=== PATIENT | female | born 2000 | race American Indian/Alaskan Native ===

== ENCOUNTER 2020-01-13 12:24 | Outpatient (CLI) | payer OTHER ==
[2020-01-13 14:00] VITALS: BP 106/60
[2020-01-13 14:14] LABS: Amorphous Crystals,Urine 1+; Bacteria,Urine 1+ /HPF (Negative); Bilirubin,Urine NEG (Negative); Blood,Urine NEG (Negative); Color,Urine Yellow (Yellow); Mucus,Urine FEW /HPF; Protein,Urine <15 mg/dL mg/dL (Negative); Urobilinogen,Urine < 2.0 mg/dL (<2.0)
== END 2020-01-13 15:27 | disposition home or self-care (01) ==
LOC: APU 12:24 → TRG 12:24 → APU 12:55 → TRG 15:27
PROVIDERS: ATTEND Obstetrics & Gynecology
DX: O36.8120 Decreased fetal movements, second trimester, not applicable or unspecified (principal); O26.852 Spotting complicating pregnancy, second trimester; Z3A.24 24 weeks gestation of pregnancy
CPT/HCPCS: 59025; 81001; 87591

== ENCOUNTER 2020-01-24 22:23 | Outpatient (CLI) | payer OTHER ==
[2020-01-24 23:35] VITALS: BP 123/74
== END 2020-01-24 23:44 | disposition home or self-care (01) ==
LOC: TRG 22:23 → APU 22:40 → TRG 23:44
PROVIDERS: ATTEND Obstetrics & Gynecology
DX: O36.8120 Decreased fetal movements, second trimester, not applicable or unspecified (principal); Z3A.25 25 weeks gestation of pregnancy
CPT/HCPCS: 59025

== ENCOUNTER 2020-02-14 12:33 | Outpatient (CLI) | payer OTHER ==
[2020-02-14 13:21] LABS: Bilirubin,Urine NEG (Negative); Blood,Urine NEG (Negative); Color,Urine Yellow (Yellow); Mucus,Urine FEW /HPF; Protein,Urine <15 mg/dL mg/dL (Negative); Urobilinogen,Urine < 2.0 mg/dL (<2.0)
[2020-02-14 13:43] VITALS: BP 105/65
[2020-02-14] MEDS: LACTATED RINGERS 1,000 ML IV SCH ×2 (13:45→14:53)
== END 2020-02-14 16:55 | disposition home or self-care (01) ==
LOC: TRG 12:33 → APU 12:34 → TRG 16:55
PROVIDERS: ATTEND Obstetrics & Gynecology
DX: O26.893 Other specified pregnancy related conditions, third trimester (principal); M79.605 Pain in left leg; Z3A.28 28 weeks gestation of pregnancy
CPT/HCPCS: 59025; 81001; 93970; 96360; 96361; J7120

== ENCOUNTER 2020-05-07 07:25 | Inpatient (IN) | payer OTHER ==
[2020-05-07] MEDS ORDERED: TERBUTALINE 1 MG/1 ML INJ SUB-Q PRN (07:54)
[2020-05-07] MEDS ORDERED: LIDOCAINE (2%) 20 MG/1 ML VIAL 20 ML MDV INFILTRATI NR (07:54)
[2020-05-07] MEDS ORDERED: AMPICILLIN/NS 2 GM/100 ML 2 GM/100 ML BAG IV ONE (07:54)
[2020-05-07] MEDS ORDERED: ePHEDrine SULFATE 50 MG/1 ML INJ IV PRN ×2 (08:00→11:40)
[2020-05-07] MEDS ORDERED: ONDANSETRON 4 MG/2 ML INJ IV PRN (08:00)
[2020-05-07] MEDS ORDERED: fentaNYL 100 MCG/2 ML INJ IV PRN (08:00)
[2020-05-07] MEDS ORDERED: OXYTOCIN DRIP 30 UNITS/500 ML BAG IV SCH (08:00)
--- NOTE | 2020-05-07 08:02 | History and Physical Report ---
History of Present Illness Date of examination: 05/07/20 (active labor;GBS+; 40w6d) Chief complaint: worsening contractions this AM History of present illness: EDC Calculations LMP: 05/01/2020 EDC Confirmation: 05/01/2020 Gestational Age: 10 weeks Past History : 1 Term Births: 0 Premature Births: 0 Living Children: 0 Para: 0 Mult. Births: 0 Prev : 0 Aborta: 0 Elect. Ab: 0 Spont. Ab: 0 Ectopics: 0 Past Medical History: Reviewed history and no changes required: Negative Past Medical History Past Surgical History: Reviewed history and no changes required: negative Past Medical History Anesthesia Complications: negative Anemia: negative Autoimmune Disorder: negative Bleeding Disorder: negative Blood Transfusions: negative Breast Disease: negative Diabetes: negative Heart Disease: negative Hypertension: negative Hepatitis/Liver Disease: negative Kidney Disease/UTI: negative Neurologic/Epilepsy/Migraines: negative Phlebitis/Varicosities: negative Psychiatric: negative Pulmonary Disease/Asthma: negative Thyroid Disease: negative Hospitalizations: negative Surgery (Non-computer network and systems engineer): negative Abnormal PAP: negative KIRSTEN Exposure: negative Infertility: negative Uterine Anomaly: negative Uterine Surgery (not C/S): negative Other Gynecologic Problems: negative Infection History Hx of STD: none HIV Risk Eval: low risk Hepatitis B Risk Eval: low risk Personal hx. of genital herpes: no Partner hx. of genital herpes: no Rash, Viral, or Febrile illness since last LMP? no Varicella/Chicken Pox Status: Unknown TB Risk: no Infection History Comments: Has never had chicken pox or vaccine. Genetic History Congenital Heart Defect: Mom: no Dad: no Miya Disease: Mom: no Dad: no Thalassemia Mom: no Dad: no Neural Tube Defect Mom: no Dad: no Down's Syndrome Mom: no Dad: no Galo-Sachs Mom: no Dad: no Sickle Cell Disease/Trait Mom: no Dad: no Hemophilia Mom: no Dad: no Muscular Dystrophy Mom: no Dad: no Cystic Fibrosis Mom: no Dad: no [place] Chorea Mom: no Dad: no Mental Retardation Mom: no Dad: no Fragile X Mom: no Dad: no Other Genetic/Chromosomal Disorder Mom: no Dad: no Child w/other defect Mom: no Dad: no Enviromental Exposures Xray Exposure: no Medication, drug, or alcohol use since LMP: no Chemical/Other Exposure: no Exposure to Cat Liter: no Hx of Parvovirus (Fifth Disease): no Occupational Exposure to Children: none Active Medications (reviewed today): None Current Allergies (reviewed today): No known allergies Past History - Obstetrical History Expected Date of Delivery: 05/01/20 Actual Gestation: 40 Week(s) 6 Day(s) : 1 Para: 0 Hx # Term Pregnancies: 0 Number of Pregnancies: 0 Spontaneous Abortions: 0 Induced : 0 Number of Living Children: 0 Medications and Allergies Allergies Allergy/AdvReac Type Severity Reaction Status Date / Time No Known Allergies Allergy Verified 01/13/20 12:55 Review of Systems All systems: negative Allergic/Immunologic: other (nonimmune rubella and varicella) - Vital Signs Vital signs: Vital Signs Pulse Pulse Ox 84 100 05/07/20 07:32 05/07/20 07:32 Temp Pulse Resp BP Pulse Ox 82 18 142/87 100 05/07/20 07:52 05/07/20 07:33 05/07/20 07:33 05/07/20 07:52 - Physical Exam Breasts: Positive: deferred Cardiovascular: Regular rate, Normal S1, Normal S2 Lungs: Positive: Normal air movement Abdomen: Positive: normal appearance, soft, normal bowel sounds. Negative: distention, tenderness Genitourinary (Female): Positive: normal external genitalia, normal perenium Vulva: both: normal Vagina: Positive: normal moisture. Negative: discharge Cervix: Negative: lesion, discharge Uterus: Positive: normal size, normal contour Adnexa: both: normal Anus/Rectum: Positive: normal perianal skin, heme negative. Negative: rectal mass, hemorrhoids Extremities: Positive: normal Deep Tendon Reflex Grade: Normal +2 - Obstetrical FHR: category 1 Uterine Contraction Monitor Mode: External Cervical Dilatation: 2 (cervix soft per technical services representative) Cervical Effacement Percentage: 60 station: -1 Uterine Contraction Frequency (min): q2min Uterine Contraction Pattern: Regular Uterine Tone Measurement Phase: Resting Uterine Contraction Intensity: Moderate Results All other labs normal. HBsAg Screen Negative Negative *1 RPR Non Reactive Non Reactive *2 Rubella Antibodies, IgG [L] <0.90 index Immune >0.99 *3 Non-immune <0.90 Equivocal 0.90 - 0.99 Immune >0.99 ABO Grouping B *4 Rh Factor Positive *5 Please note: Prior records for this patient's ABO / Rh type are not available for additional verification. Antibody Screen Negative Negative *6 WBC 8.0 x10E3/uL 3.4-10.8 *7 RBC 3.85 x10E6/uL 3.77-5.28 *8 Hemoglobin 11.6 g/dL 11.1-15.9 *9 Hematocrit 34.2 % 34.0-46.6 *10 MCV 89 fL 79-97 *11 MCH 30.1 pg 26.6-33.0 *12 MCHC 33.9 g/dL 31.5-35.7 *13 RDW 14.0 % 11.7-15.4 *14 Platelets 260 x10E3/uL 150-450 *15 Neutrophils 70 % Not Estab. *16 Lymphs 22 % Not Estab. *17 Monocytes 7 % Not Estab. *18 Eos 1 % Not Estab. *19 Basos 0 % Not Estab. *20 ! Immature Cells <No Reported Value> *21 Neutrophils (Absolute) 5.6 x10E3/uL 1.4-7.0 *22 Lymphs (Absolute) 1.7 x10E3/uL 0.7-3.1 *23 Monocytes(Absolute) 0.6 x10E3/uL 0.1-0.9 *24 Eos (Absolute) 0.1 x10E3/uL 0.0-0.4 *25 Baso (Absolute) 0.0 x10E3/uL 0.0-0.2 *26 ! Immature Granulocytes 0 % Not Estab. *27 ! Immature Grans (Abs) 0.0 x10E3/uL 0.0-0.1 *28 ! NRBC <No Reported Value> *29 Hematology Comments: <No Reported Value> *30 Tests: (2) HB Solu + Rflx [facility] ([id number]) Hemoglobin (Hgb) Solubility Negative Negative *31 Tests: (3) HIV Ag/Ab with Reflex ([id number]) HIV Screen 4th Generation wRfx Non Reactive Non Reactive *32 Tests: (4) Varicella-Zoster V Ab, IgG ([id number]) ! Varicella Zoster IgG [L] <135 index Immune >165 *33 Negative <135 Equivocal 135 - 165 Positive >165 A positive result generally indicates exposure to the pathogen or administration of specific immunoglobulins, but it is not indication of active infection or stage of disease. Tests: (5) HCV Ab w/Rflx to Verification ([id number]) ! HCV Ab <0.1 s/co ratio 0.0-0.9 *34 Tests: (6) Comment: ([id number]) ! Comment: SPRCS *35 Non reactive HCV antibody screen is consistent with no HCV infection, unless recent infection is suspected or other evidence exists to indicate HCV infection. Tests: (7) Urine Culture, Routine ([id number]) Urine Culture, Routine [A] Final report *36 Tests: (8) Result ([id number]) ! Result 1 [A] BETAGB *37 Beta hemolytic Streptococcus, group B Penicillin and ampicillin are drugs of choice for treatment of beta-hemolytic streptococcal infections. Susceptibility testing of penicillins and other beta-lactam agents approved by the FDA for treatment of beta-hemolytic streptococcal infections need not be performed routinely because nonsusceptible isolates are extremely rare in any beta-hemolytic streptococcus and have not been reported for Streptococcus pyogenes (group A). (CLSI) 10,000-25,000 colony forming units per mL ! Result 2 MUG *38 Mixed urogenital kay 10,000-25,000 colony forming units per mL Assessment and Plan 19yo @ 40w6d in active labor. CTX that started this AM. Epidural PRN. GBS+ Will treat in labor. All orders in EMR. - Patient Problems (1) Maternal varicella, non-immune Onset Date: ~05/07/20 Current Visit: Yes Status: Acute Plan to address problem: Will offer vaccine for chicken pox (2) Rubella non-immune status, antepartum Onset Date: ~05/07/20 Current Visit: Yes Status: Acute Plan to address problem: Will offer MMR for rubella nonimmune (3) Group B Streptococcus carrier state affecting Onset Date: ~05/07/20 Current Visit: Yes Status: Acute Plan to address problem: Will treat per protocol with Ampicillin in labor. Orders in EMR
[2020-05-07] MEDS: LACTATED RINGERS 1,000 ML IV SCH ×4 (08:25→19:10)
[2020-05-07 08:59] LABS: Hemoglobin 11.8 gm/dl (10.1-14.3); Mean Corpuscular HGB Conc 34 % (30-34); Mean Corpuscular Volume 90 fl (79-97); Platelet Count 270 K/mm3 (140-440); Red Blood Count 3.88 M/mm3 (3.65-5.03); Red Cell Distribution Width 14.4 % (13.2-15.2)
[2020-05-07] MEDS ORDERED: DEXMEDETOMIDINE 200 MCG/2 ML VIAL IV ONE (10:10)
--- NOTE | 2020-05-07 11:25 | Anesthesia Consultation ---
Anesthesia Consult and Med Hx Date of service: 05/07/20 - Airway Anesthetic Teeth Evaluation: Good ROM Head & Neck: Adequate Mental/Hyoid Distance: Adequate Mallampati Class: Class II Intubation Access Assessment: Probably Good - Pulmonary Exam CTA: Yes - Cardiac Exam Cardiac Exam: RRR - Pre-Operative Health Status ASA Pre-Surgery Classification: ASA2 Proposed Anesthetic Plan: Epidural - Pulmonary Hx Smoking: No Hx Asthma: No Hx Respiratory Symptoms: No SOB: No COPD: No Home Oxygen Therapy: No Hx Pneumonia: No Hx Sleep Apnea: No - Cardiovascular System Hx Hypertension: No Hx Coronary Artery Disease: No Hx Heart Attack/AMI: No Hx Angina: No Hx Percutaneous Transluminal Coronary Angioplasty (PTCA): No Hx Cardia Arrhythmia: No Hx Pacemaker: No Hx Internal Defibrillator: No Hx Valvular Heart Disease: No Hx Heart Murmur: No Hx Peripheral Vascular Disease: No - Central Nervous System Hx Neuromuscular Disorder: No Hx Seizures: No CVA: No Hx Back Pain: Yes (anxiety) Hx Psychiatric Problems: No - Gastrointestinal Hx Ulcer: No Hx Gastroesophageal Reflux Disease: Yes - Endocrine Hx Renal Disease: No Hx End Stage Renal Disease: No Hx Cirrhosis: No Hx Liver Disease: No Hx Insulin Dependent Diabetes: No Hx Non-Insulin Dependent Diabetes: No Hx Thyroid Disease: No Hx Hypothyroidism: No Hx Hyperthyroidism: No - Hematic Hx Anemia: No Hx Sickle Cell Disease: No - Other Systems Hx Alcohol Use: No Hx Substance Use: No Hx Cancer: No Hx Obesity: No
--- NOTE | 2020-05-07 11:37 | Progress Note ---
Labor Epidural - Labor Epidural Start Time: 10:10 Stop Time: 10:42 Performed by:: DAO ACHARYA Procedure: Patient is requesting combined spinal epidural for labor and pain. H&P, labs were reviewed. All questions and concerns were answered. Informed consent was obtained. Timeout performed. Patient in sitting position on side of bed. Sterile prep and drape was performed. 5mL 1% lidocaine skin wheal at L [3]-L [4]. 18-gauge Tuohy epidural needle advanced to [id number] using air technique , [6cm]. 27-gauge spinal needle advanced, Positive Paresthesia, Tuohy needle repositioned. free-flowing CSF with 2nd attempt with no Parethesia. Spinal dose of [Precedex 10 mcg]. Epidural catheter advanced to [11] cm. [negative] Aspiration, [negative] test dose. Sterile dressing applied. Patient extremely anxious during procedure. Needed to stop multiple times for verbel reassurance.
[2020-05-07] MEDS ORDERED: NALOXONE 2 MG/2 ML INJ IV PRN (11:40)
[2020-05-07 11:48] LABS: Bilirubin,Urine NEG (Negative); Blood,Urine SM (Negative); Color,Urine Straw (Yellow); Hyaline Casts,Urine 1 /LPF; Protein,Urine <15 mg/dL mg/dL (Negative); Urobilinogen,Urine < 2.0 mg/dL (<2.0)
[2020-05-07 11:57] LABS: Amphetamine Screen,Urine Negative; Benzodiazepines Screen,Urine Negative; Cannabinoid Screen,Urine Negative; Cocaine Screen,Urine Negative; Methadone Screen,Urine Negative; Opiate Screen,Urine Negative
[2020-05-07] MEDS ORDERED: fentaNYL-BUPIV 2 MCG/ML-0.125% 200 MCG/100 ML BAG EPIDURAL SCH (12:00)
[2020-05-07] MEDS: AMPICILLIN/NS 1 GM/50 ML 1 GM/50 ML BAG IV SCH ×2 (12:08→16:25)
--- NOTE | 2020-05-07 12:31 | Progress Note ---
Assessment and Plan A: Epidural in, pt sleeping. Regular contractions on Pitocin titration. SVE per RN /-1. Cat 1 tracing with accels. VSS. Intact membranes P: Continue Pitocin titration as tolerated. GBS treatment per protocol. Expect Vaginal delivery. Dr Morton aware. - Patient Problems (1) Maternal varicella, non-immune Onset Date: ~05/07/20 Current Visit: Yes Status: Acute (2) Rubella non-immune status, antepartum Onset Date: ~05/07/20 Current Visit: Yes Status: Acute (3) Group B Streptococcus carrier state affecting Onset Date: ~05/07/20 Current Visit: Yes Status: Acute Subjective - Subjective Date of service: 05/07/20 (Comfortable with epidural) Principal diagnosis: Term IUP in labor Interval history: EDC Calculations LMP: 05/01/2020 EDC Confirmation: 05/01/2020 Gestational Age: 10 weeks Past History : 1 Term Births: 0 Premature Births: 0 Living Children: 0 Para: 0 Mult. Births: 0 Prev : 0 Aborta: 0 Elect. Ab: 0 Spont. Ab: 0 Ectopics: 0 Past Medical History: Reviewed history and no changes required: Negative Past Medical History Past Surgical History: Reviewed history and no changes required: negative Past Medical History Anesthesia Complications: negative Anemia: negative Autoimmune Disorder: negative Bleeding Disorder: negative Blood Transfusions: negative Breast Disease: negative Diabetes: negative Heart Disease: negative Hypertension: negative Hepatitis/Liver Disease: negative Kidney Disease/UTI: negative Neurologic/Epilepsy/Migraines: negative Phlebitis/Varicosities: negative Psychiatric: negative Pulmonary Disease/Asthma: negative Thyroid Disease: negative Hospitalizations: negative Surgery (Non-railroad police): negative Abnormal PAP: negative KIRSTEN Exposure: negative Infertility: negative Uterine Anomaly: negative Uterine Surgery (not C/S): negative Other Gynecologic Problems: negative Infection History Hx of STD: none HIV Risk Eval: low risk Hepatitis B Risk Eval: low risk Personal hx. of genital herpes: no Partner hx. of genital herpes: no Rash, Viral, or Febrile illness since last LMP? no Varicella/Chicken Pox Status: Unknown TB Risk: no Infection History Comments: Has never had chicken pox or vaccine. Genetic History Congenital Heart Defect: Mom: no Dad: no Miya Disease: Mom: no Dad: no Thalassemia Mom: no Dad: no Neural Tube Defect Mom: no Dad: no Down's Syndrome Mom: no Dad: no Galo-Sachs Mom: no Dad: no Sickle Cell Disease/Trait Mom: no Dad: no Hemophilia Mom: no Dad: no Muscular Dystrophy Mom: no Dad: no Cystic Fibrosis Mom: no Dad: no [place] Chorea Mom: no Dad: no Mental Retardation Mom: no Dad: no Fragile X Mom: no Dad: no Other Genetic/Chromosomal Disorder Mom: no Dad: no Child w/other defect Mom: no Dad: no Enviromental Exposures Xray Exposure: no Medication, drug, or alcohol use since LMP: no Chemical/Other Exposure: no Exposure to Cat Liter: no Hx of Parvovirus (Fifth Disease): no Occupational Exposure to Children: none Active Medications (reviewed today): None Current Allergies (reviewed today): No known allergies Patient reports: movement normal, contractions Objective - Vital Signs Vital Signs: Vital Signs - 12hr 05/07/20 05/07/20 05/07/20 07:32 07:33 07:37 Temperature Pulse Rate 84 81 87 Respiratory 18 Rate Blood Pressure 142/87 Blood Pressure 142/87 [Left] O2 Sat by Pulse 100 100 100 Oximetry 05/07/20 05/07/20 05/07/20 07:42 07:47 07:52 Temperature Pulse Rate 86 84 82 Respiratory Rate Blood Pressure Blood Pressure [Left] O2 Sat by Pulse 100 100 100 Oximetry 05/07/20 05/07/20 05/07/20 07:54 09:29 09:30 Temperature 97.7 F Pulse Rate 68 68 Respiratory 20 Rate Blood Pressure 133/83 Blood Pressure 133/83 [Left] O2 Sat by Pulse 88 Oximetry 05/07/20 05/07/20 05/07/20 10:04 10:09 10:14 Temperature Pulse Rate 79 69 59 L Respiratory Rate Blood Pressure Blood Pressure [Left] O2 Sat by Pulse 100 99 100 Oximetry 05/07/20 05/07/20 05/07/20 10:19 10:23 10:29 Temperature Pulse Rate 67 105 H 76 Respiratory Rate Blood Pressure Blood Pressure [Left] O2 Sat by Pulse 100 100 100 Oximetry 05/07/20 05/07/20 05/07/20 10:34 10:39 10:44 Temperature Pulse Rate 98 H 80 66 Respiratory Rate Blood Pressure Blood Pressure [Left] O2 Sat by Pulse 100 100 100 Oximetry 05/07/20 05/07/20 05/07/20 10:45 10:49 10:51 Temperature Pulse Rate 84 86 78 Respiratory Rate Blood Pressure 108/58 97/52 Blood Pressure [Left] O2 Sat by Pulse 100 Oximetry 05/07/20 05/07/20 05/07/20 10:53 10:57 10:59 Temperature Pulse Rate 74 80 76 Respiratory Rate Blood Pressure 82/47 Blood Pressure [Left] O2 Sat by Pulse 100 100 Oximetry 05/07/20 05/07/20 05/07/20 11:01 11:04 11:06 Temperature Pulse Rate 81 64 71 Respiratory Rate Blood Pressure 87/49 108/65 Blood Pressure [Left] O2 Sat by Pulse 100 Oximetry 05/07/20 05/07/20 05/07/20 11:09 11:10 11:14 Temperature Pulse Rate 66 78 62 Respiratory Rate Blood Pressure 107/64 Blood Pressure [Left] O2 Sat by Pulse 100 99 Oximetry 05/07/20 05/07/20 05/07/20 11:15 11:19 11:20 Temperature Pulse Rate 88 90 91 H Respiratory Rate Blood Pressure 90/53 92/50 Blood Pressure [Left] O2 Sat by Pulse 99 Oximetry 05/07/20 05/07/20 05/07/20 11:24 11:25 11:29 Temperature Pulse Rate 79 72 77 Respiratory Rate Blood Pressure 103/60 Blood Pressure [Left] O2 Sat by Pulse 99 100 Oximetry 05/07/20 05/07/20 05/07/20 11:30 11:34 11:35 Temperature Pulse Rate 91 H 68 95 H Respiratory Rate Blood Pressure 84/50 103/55 Blood Pressure [Left] O2 Sat by Pulse 100 Oximetry 05/07/20 05/07/20 05/07/20 11:38 11:40 11:44 Temperature Pulse Rate 80 92 H 68 Respiratory Rate Blood Pressure 94/56 Blood Pressure [Left] O2 Sat by Pulse 99 100 Oximetry 05/07/20 05/07/20 05/07/20 11:47 11:48 11:49 Temperature Pulse Rate 90 74 56 L Respiratory Rate Blood Pressure 77/42 81/50 Blood Pressure [Left] O2 Sat by Pulse 99 Oximetry 05/07/20 05/07/20 05/07/20 11:50 11:54 11:55 Temperature Pulse Rate 68 54 L 62 Respiratory Rate Blood Pressure 88/55 110/63 Blood Pressure [Left] O2 Sat by Pulse 100 Oximetry 05/07/20 05/07/20 05/07/20 11:59 12:01 12:04 Temperature Pulse Rate 83 64 83 Respiratory Rate Blood Pressure 107/62 Blood Pressure [Left] O2 Sat by Pulse 100 100 Oximetry 05/07/20 05/07/20 05/07/20 12:06 12:09 12:10 Temperature Pulse Rate 70 59 L 57 L Respiratory Rate Blood Pressure 103/58 109/69 Blood Pressure [Left] O2 Sat by Pulse 100 Oximetry 05/07/20 05/07/20 05/07/20 12:14 12:17 12:19 Temperature Pulse Rate 59 L 60 64 Respiratory Rate Blood Pressure 108/69 Blood Pressure [Left] O2 Sat by Pulse 100 99 Oximetry 05/07/20 05/07/20 12:20 12:24 Temperature Pulse Rate 65 70 Respiratory Rate Blood Pressure 106/61 Blood Pressure [Left] O2 Sat by Pulse 100 Oximetry - Exam Breasts: normal Cardiovascular: Regular rate Lungs: Normal air movement Abdomen: Present: normal appearance, soft, normal bowel sounds. Absent: distention, tenderness Uterus: Present: normal FHR: auscultation normal, category 1 Uterine Contraction Monitor Mode: External Cervical Dilatation: 3 Cervical Effacement Percentage: 70 station: -1 Uterine Contraction Pattern: Regular Uterine Tone Measurement Phase: Resting Uterine Contraction Intensity: Moderate Extremities: normal Deep Tendon Reflex Grade: Normal +2 - Labs Labs: Laboratory Results - last 24 hr 05/07/20 05/07/20 05/07/20 08:30 08:30 08:30 WBC 6.1 RBC 3.88 Hgb 11.8 Hct 35.0 MCV 90 MCH 30 MCHC 34 RDW 14.4 Plt Count 270 Urine Color Urine Turbidity Urine pH Ur Specific [place] Urine Protein Urine Glucose (UA) Urine Ketones Urine Blood Urine Nitrite Urine Bilirubin Urine Urobilinogen Ur Leukocyte Esterase Urine WBC (Auto) Urine RBC (Auto) U Epithel Cells (Auto) Hyaline Casts Urine Opiates Screen Urine Methadone Screen Ur Barbiturates Screen Ur Phencyclidine Scrn Ur Amphetamines Screen U Benzodiazepines Scrn Urine Cocaine Screen U Marijuana (THC) Screen Drugs of Abuse Note Syphilis IgG Antibody Nonreactive Blood Type B POSITIVE Antibody Screen Negative 05/07/20 05/07/20 09:45 09:45 WBC RBC Hgb Hct MCV MCH MCHC RDW Plt Count Urine Color Straw Urine Turbidity Clear Urine pH 7.0 Ur Specific [place] 1.011 Urine Protein <15 mg/dl Urine Glucose (UA) Neg Urine Ketones Neg Urine Blood Sm Urine Nitrite Neg Urine Bilirubin Neg Urine Urobilinogen < 2.0 Ur Leukocyte Esterase Neg Urine WBC (Auto) 2.0 Urine RBC (Auto) 2.0 U Epithel Cells (Auto) 1.0 Hyaline Casts 1 Urine Opiates Screen Negative Urine Methadone Screen Negative Ur Barbiturates Screen Negative Ur Phencyclidine Scrn Negative Ur Amphetamines Screen Negative U Benzodiazepines Scrn Negative Urine Cocaine Screen Negative U Marijuana (THC) Screen Negative Drugs of Abuse Note Disclamer Syphilis IgG Antibody Blood Type Antibody Screen
--- NOTE | 2020-05-07 16:14 | Progress Note ---
Assessment and Plan A: SVE 9/100/-2, Intact BOW. Cat I tracing with accels. Regular contractions. Comfortable with epidural. P: Continue pitocin at current titration. High fowlers position. Plan for - Patient Problems (1) Maternal varicella, non-immune Onset Date: ~05/07/20 Current Visit: Yes Status: Acute (2) Rubella non-immune status, antepartum Onset Date: ~05/07/20 Current Visit: Yes Status: Acute (3) Group B Streptococcus carrier state affecting Onset Date: ~05/07/20 Current Visit: Yes Status: Acute Subjective - Subjective Date of service: 05/07/20 (Comfortable with epidural) Principal diagnosis: Term IUP in labor Interval history: EDC Calculations LMP: 05/01/2020 EDC Confirmation: 05/01/2020 Gestational Age: 10 weeks Past History : 1 Term Births: 0 Premature Births: 0 Living Children: 0 Para: 0 Mult. Births: 0 Prev : 0 Aborta: 0 Elect. Ab: 0 Spont. Ab: 0 Ectopics: 0 Past Medical History: Reviewed history and no changes required: Negative Past Medical History Past Surgical History: Reviewed history and no changes required: negative Past Medical History Anesthesia Complications: negative Anemia: negative Autoimmune Disorder: negative Bleeding Disorder: negative Blood Transfusions: negative Breast Disease: negative Diabetes: negative Heart Disease: negative Hypertension: negative Hepatitis/Liver Disease: negative Kidney Disease/UTI: negative Neurologic/Epilepsy/Migraines: negative Phlebitis/Varicosities: negative Psychiatric: negative Pulmonary Disease/Asthma: negative Thyroid Disease: negative Hospitalizations: negative Surgery (Non-senior care provider): negative Abnormal PAP: negative KIRSTEN Exposure: negative Infertility: negative Uterine Anomaly: negative Uterine Surgery (not C/S): negative Other Gynecologic Problems: negative Infection History Hx of STD: none HIV Risk Eval: low risk Hepatitis B Risk Eval: low risk Personal hx. of genital herpes: no Partner hx. of genital herpes: no Rash, Viral, or Febrile illness since last LMP? no Varicella/Chicken Pox Status: Unknown TB Risk: no Infection History Comments: Has never had chicken pox or vaccine. Genetic History Congenital Heart Defect: Mom: no Dad: no Miya Disease: Mom: no Dad: no Thalassemia Mom: no Dad: no Neural Tube Defect Mom: no Dad: no Down's Syndrome Mom: no Dad: no Galo-Sachs Mom: no Dad: no Sickle Cell Disease/Trait Mom: no Dad: no Hemophilia Mom: no Dad: no Muscular Dystrophy Mom: no Dad: no Cystic Fibrosis Mom: no Dad: no [place] Chorea Mom: no Dad: no Mental Retardation Mom: no Dad: no Fragile X Mom: no Dad: no Other Genetic/Chromosomal Disorder Mom: no Dad: no Child w/other defect Mom: no Dad: no Enviromental Exposures Xray Exposure: no Medication, drug, or alcohol use since LMP: no Chemical/Other Exposure: no Exposure to Cat Liter: no Hx of Parvovirus (Fifth Disease): no Occupational Exposure to Children: none Active Medications (reviewed today): None Current Allergies (reviewed today): No known allergies Patient reports: movement normal, contractions Objective - Vital Signs Vital Signs: Vital Signs - 12hr 05/07/20 05/07/20 05/07/20 07:32 07:33 07:37 Temperature Pulse Rate 84 81 87 Respiratory 18 Rate Blood Pressure 142/87 Blood Pressure 142/87 [Left] O2 Sat by Pulse 100 100 100 Oximetry 05/07/20 05/07/20 05/07/20 07:42 07:47 07:52 Temperature Pulse Rate 86 84 82 Respiratory Rate Blood Pressure Blood Pressure [Left] O2 Sat by Pulse 100 100 100 Oximetry 05/07/20 05/07/20 05/07/20 07:54 09:29 09:30 Temperature 97.7 F Pulse Rate 68 68 Respiratory 20 Rate Blood Pressure 133/83 Blood Pressure 133/83 [Left] O2 Sat by Pulse 88 Oximetry 05/07/20 05/07/20 05/07/20 10:04 10:09 10:14 Temperature Pulse Rate 79 69 59 L Respiratory Rate Blood Pressure Blood Pressure [Left] O2 Sat by Pulse 100 99 100 Oximetry 05/07/20 05/07/20 05/07/20 10:19 10:23 10:29 Temperature Pulse Rate 67 105 H 76 Respiratory Rate Blood Pressure Blood Pressure [Left] O2 Sat by Pulse 100 100 100 Oximetry 05/07/20 05/07/20 05/07/20 10:34 10:39 10:44 Temperature Pulse Rate 98 H 80 66 Respiratory Rate Blood Pressure Blood Pressure [Left] O2 Sat by Pulse 100 100 100 Oximetry 05/07/20 05/07/20 05/07/20 10:45 10:49 10:51 Temperature Pulse Rate 84 86 78 Respiratory Rate Blood Pressure 108/58 97/52 Blood Pressure [Left] O2 Sat by Pulse 100 Oximetry 05/07/20 05/07/20 05/07/20 10:53 10:57 10:59 Temperature Pulse Rate 74 80 76 Respiratory Rate Blood Pressure 82/47 Blood Pressure [Left] O2 Sat by Pulse 100 100 Oximetry 05/07/20 05/07/20 05/07/20 11:01 11:04 11:06 Temperature Pulse Rate 81 64 71 Respiratory Rate Blood Pressure 87/49 108/65 Blood Pressure [Left] O2 Sat by Pulse 100 Oximetry 05/07/20 05/07/20 05/07/20 11:09 11:10 11:14 Temperature Pulse Rate 66 78 62 Respiratory Rate Blood Pressure 107/64 Blood Pressure [Left] O2 Sat by Pulse 100 99 Oximetry 05/07/20 05/07/20 05/07/20 11:15 11:19 11:20 Temperature Pulse Rate 88 90 91 H Respiratory Rate Blood Pressure 90/53 92/50 Blood Pressure [Left] O2 Sat by Pulse 99 Oximetry 05/07/20 05/07/20 05/07/20 11:24 11:25 11:29 Temperature Pulse Rate 79 72 77 Respiratory Rate Blood Pressure 103/60 Blood Pressure [Left] O2 Sat by Pulse 99 100 Oximetry 05/07/20 05/07/20 05/07/20 11:30 11:34 11:35 Temperature Pulse Rate 91 H 68 95 H Respiratory Rate Blood Pressure 84/50 103/55 Blood Pressure [Left] O2 Sat by Pulse 100 Oximetry 05/07/20 05/07/20 05/07/20 11:38 11:40 11:44 Temperature Pulse Rate 80 92 H 68 Respiratory Rate Blood Pressure 94/56 Blood Pressure [Left] O2 Sat by Pulse 99 100 Oximetry 05/07/20 05/07/20 05/07/20 11:47 11:48 11:49 Temperature Pulse Rate 90 74 56 L Respiratory Rate Blood Pressure 77/42 81/50 Blood Pressure [Left] O2 Sat by Pulse 99 Oximetry 05/07/20 05/07/20 05/07/20 11:50 11:54 11:55 Temperature Pulse Rate 68 54 L 62 Respiratory Rate Blood Pressure 88/55 110/63 Blood Pressure [Left] O2 Sat by Pulse 100 Oximetry 05/07/20 05/07/20 05/07/20 11:59 12:01 12:04 Temperature Pulse Rate 83 64 83 Respiratory Rate Blood Pressure 107/62 Blood Pressure [Left] O2 Sat by Pulse 100 100 Oximetry 05/07/20 05/07/20 05/07/20 12:06 12:09 12:10 Temperature Pulse Rate 70 59 L 57 L Respiratory Rate Blood Pressure 103/58 109/69 Blood Pressure [Left] O2 Sat by Pulse 100 Oximetry 05/07/20 05/07/20 05/07/20 12:14 12:17 12:19 Temperature Pulse Rate 59 L 60 64 Respiratory Rate Blood Pressure 108/69 Blood Pressure [Left] O2 Sat by Pulse 100 99 Oximetry 05/07/20 05/07/20 05/07/20 12:20 12:24 12:27 Temperature Pulse Rate 65 70 64 Respiratory Rate Blood Pressure 106/61 107/63 Blood Pressure [Left] O2 Sat by Pulse 100 Oximetry 05/07/20 05/07/20 05/07/20 12:29 12:31 12:34 Temperature Pulse Rate 85 75 59 L Respiratory Rate Blood Pressure 101/57 Blood Pressure [Left] O2 Sat by Pulse 100 100 Oximetry 05/07/20 05/07/20 05/07/20 12:36 12:39 12:40 Temperature Pulse Rate 74 88 61 Respiratory Rate Blood Pressure 101/57 107/64 Blood Pressure [Left] O2 Sat by Pulse 100 Oximetry 05/07/20 05/07/20 05/07/20 12:44 12:46 12:49 Temperature Pulse Rate 82 72 84 Respiratory Rate Blood Pressure 103/59 Blood Pressure [Left] O2 Sat by Pulse 100 100 Oximetry 05/07/20 05/07/20 05/07/20 12:50 12:54 12:56 Temperature Pulse Rate 92 H 91 H 77 Respiratory Rate Blood Pressure 96/56 111/67 Blood Pressure [Left] O2 Sat by Pulse 100 Oximetry 05/07/20 05/07/20 05/07/20 12:59 13:00 13:04 Temperature Pulse Rate 70 96 H 67 Respiratory Rate Blood Pressure 99/54 Blood Pressure [Left] O2 Sat by Pulse 100 100 Oximetry 05/07/20 05/07/20 05/07/20 13:06 13:09 13:10 Temperature Pulse Rate 83 61 72 Respiratory Rate Blood Pressure 109/64 113/64 Blood Pressure [Left] O2 Sat by Pulse 100 Oximetry 05/07/20 05/07/20 05/07/20 13:14 13:15 13:19 Temperature Pulse Rate 59 L 70 90 Respiratory Rate Blood Pressure 111/72 Blood Pressure [Left] O2 Sat by Pulse 100 100 Oximetry 05/07/20 05/07/20 05/07/20 13:20 13:24 13:25 Temperature 97.3 F L Pulse Rate 89 60 Respiratory 20 Rate Blood Pressure 99/55 Blood Pressure [Left] O2 Sat by Pulse 100 100 Oximetry 05/07/20 05/07/20 05/07/20 13:27 13:29 13:30 Temperature Pulse Rate 59 L 55 L 64 Respiratory Rate Blood Pressure 112/69 103/63 Blood Pressure [Left] O2 Sat by Pulse 100 Oximetry 05/07/20 05/07/20 05/07/20 13:34 13:39 13:43 Temperature Pulse Rate 59 L 56 L 81 Respiratory Rate Blood Pressure Blood Pressure [Left] O2 Sat by Pulse 100 100 100 Oximetry 05/07/20 05/07/20 05/07/20 13:47 13:49 13:54 Temperature Pulse Rate 103 H 82 67 Respiratory Rate Blood Pressure 120/66 Blood Pressure [Left] O2 Sat by Pulse 100 100 Oximetry 05/07/20 05/07/20 05/07/20 13:59 14:00 14:04 Temperature Pulse Rate 61 69 61 Respiratory Rate Blood Pressure 100/63 Blood Pressure [Left] O2 Sat by Pulse 100 100 Oximetry 05/07/20 05/07/20 05/07/20 14:08 14:14 14:17 Temperature Pulse Rate 89 78 54 L Respiratory Rate Blood Pressure 122/74 Blood Pressure [Left] O2 Sat by Pulse 100 100 Oximetry 05/07/20 05/07/20 05/07/20 14:19 14:24 14:29 Temperature Pulse Rate 76 62 80 Respiratory Rate Blood Pressure Blood Pressure [Left] O2 Sat by Pulse 100 100 100 Oximetry 05/07/20 05/07/20 05/07/20 14:34 14:39 14:44 Temperature Pulse Rate 76 59 L 83 Respiratory Rate Blood Pressure Blood Pressure [Left] O2 Sat by Pulse 100 100 100 Oximetry 05/07/20 05/07/20 05/07/20 14:45 14:49 14:54 Temperature Pulse Rate 65 75 67 Respiratory Rate Blood Pressure 112/66 Blood Pressure [Left] O2 Sat by Pulse 100 100 Oximetry 05/07/20 05/07/20 05/07/20 14:59 15:00 15:04 Temperature Pulse Rate 80 82 63 Respiratory Rate Blood Pressure 104/60 Blood Pressure [Left] O2 Sat by Pulse 100 100 Oximetry 05/07/20 05/07/20 05/07/20 15:09 15:14 15:15 Temperature Pulse Rate 55 L 54 L 71 Respiratory Rate Blood Pressure 113/69 Blood Pressure [Left] O2 Sat by Pulse 100 100 Oximetry 05/07/20 05/07/20 05/07/20 15:19 15:24 15:29 Temperature Pulse Rate 68 68 57 L Respiratory Rate Blood Pressure Blood Pressure [Left] O2 Sat by Pulse 100 100 100 Oximetry 05/07/20 05/07/20 05/07/20 15:30 15:34 15:39 Temperature Pulse Rate 65 82 57 L Respiratory Rate Blood Pressure 114/77 Blood Pressure [Left] O2 Sat by Pulse 100 100 Oximetry 05/07/20 05/07/20 05/07/20 15:44 15:46 15:49 Temperature Pulse Rate 78 69 63 Respiratory Rate Blood Pressure 106/66 Blood Pressure [Left] O2 Sat by Pulse 100 100 Oximetry 05/07/20 05/07/20 05/07/20 15:54 15:59 16:00 Temperature Pulse Rate 63 67 64 Respiratory Rate Blood Pressure 118/74 Blood Pressure [Left] O2 Sat by Pulse 100 100 Oximetry 05/07/20 05/07/20 16:04 16:09 Temperature Pulse Rate 76 68 Respiratory Rate Blood Pressure Blood Pressure [Left] O2 Sat by Pulse 100 100 Oximetry - Exam Breasts: normal Cardiovascular: Regular rate Lungs: Normal air movement Abdomen: Present: normal appearance FHR: category 1 Uterine Contraction Monitor Mode: External Cervical Dilatation: 9 Cervical Effacement Percentage: 100 station: -2 Uterine Contraction Pattern: Regular Uterine Tone Measurement Phase: Resting Uterine Contraction Intensity: Moderate Extremities: edema (1+ BLE) Deep Tendon Reflex Grade: Normal +2 - Labs Labs: Laboratory Results - last 24 hr 05/07/20 05/07/20 05/07/20 08:30 08:30 08:30 WBC 6.1 RBC 3.88 Hgb 11.8 Hct 35.0 MCV 90 MCH 30 MCHC 34 RDW 14.4 Plt Count 270 Urine Color Urine Turbidity Urine pH Ur Specific [place] Urine Protein Urine Glucose (UA) Urine Ketones Urine Blood Urine Nitrite Urine Bilirubin Urine Urobilinogen Ur Leukocyte Esterase Urine WBC (Auto) Urine RBC (Auto) U Epithel Cells (Auto) Hyaline Casts Urine Opiates Screen Urine Methadone Screen Ur Barbiturates Screen Ur Phencyclidine Scrn Ur Amphetamines Screen U Benzodiazepines Scrn Urine Cocaine Screen U Marijuana (THC) Screen Drugs of Abuse Note Syphilis IgG Antibody Nonreactive Blood Type B POSITIVE Antibody Screen Negative 05/07/20 05/07/20 09:45 09:45 WBC RBC Hgb Hct MCV MCH MCHC RDW Plt Count Urine Color Straw Urine Turbidity Clear Urine pH 7.0 Ur Specific [place] 1.011 Urine Protein <15 mg/dl Urine Glucose (UA) Neg Urine Ketones Neg Urine Blood Sm Urine Nitrite Neg Urine Bilirubin Neg Urine Urobilinogen < 2.0 Ur Leukocyte Esterase Neg Urine WBC (Auto) 2.0 Urine RBC (Auto) 2.0 U Epithel Cells (Auto) 1.0 Hyaline Casts 1 Urine Opiates Screen Negative Urine Methadone Screen Negative Ur Barbiturates Screen Negative Ur Phencyclidine Scrn Negative Ur Amphetamines Screen Negative U Benzodiazepines Scrn Negative Urine Cocaine Screen Negative U Marijuana (THC) Screen Negative Drugs of Abuse Note Disclamer Syphilis IgG Antibody Blood Type Antibody Screen
--- NOTE | 2020-05-07 19:01 | Event Note ---
Date: 05/07/20 (Pushing discontinued) Pushing initiated and discontinued due to heart rate decelerations and uterine tachysystole. Pitocin discontinued, terbutaline given, ISE placed. Patient in extreme left lateral. Decelerations resolved. Dr Morton reviewed strip and aware of plan.
[2020-05-07] MEDS: OXYTOCIN 20 UNIT/1000ML DRIP 20 UNITS/1,000 ML BAG IV SCH ×2 (20:39→21:30)
--- NOTE | 2020-05-07 21:06 | Procedure Note ---
OB Delivery Note - Delivery Date of Delivery: 05/07/20 Sales Operations Assistant: ROSI WASHINGTON (MIRTA Clayton) Estimated blood loss: 200cc - Vaginal Delivery presentation: vertex Delivery position: OA Intrapartum events: mult.variable deceleratio Delivery induction: none Delivery augmentation: pitocin Delivery monitor: external FHT, external uterine, internal FHT (dislodged while pushing) Route of delivery: Delivery placenta: spontaneous Delivery cord: 3 umbilical vessels Episiotomy: none Delivery laceration: none Anesthesia: epidural Delivery comments: HELEN nurse at bedside. viable term male over intact perineum. placed on mothers abdomen skin to skin. Delayed cord clamping 45 seconds. Cord clamped and cut by father. Spontaneous delivery of intact placenta. Pitocin IVFs started. Intact vagina and perineum on inspection. Apgars 8/9. Fundus firm at umbilicus. EBL 200 ml. All counts correct. weight 6 #14 oz. Mom and baby remain LDR stable - A at 1 minute: 8 at 5 minutes: 9 Gender: Male (Weight 6#14oz [place])
[2020-05-07] MEDS ORDERED: MINERAL OIL 30 ML ORAL LIQD PO PRN (22:00)
[2020-05-07] MEDS ORDERED: IBUPROFEN 600 MG TAB PO ONE (22:39)
[2020-05-08] MEDS ORDERED: diphenhydrAMINE 25 MG CAP PO PRN (00:29)
[2020-05-08] MEDS ORDERED: PROMETHAZINE 25 MG TAB PO PRN (00:29)
[2020-05-08] MEDS ORDERED: WITCH HAZEL/ GLYCERIN PAD TP PRN (00:29)
[2020-05-08] MEDS ORDERED: ACETAMINOPHEN 325 MG TAB PO PRN (00:29)
[2020-05-08] MEDS ORDERED: LANOLIN/ZINC/DIMETHICONE (LANSINOH) 7 GM TP PRN (00:29)
[2020-05-08] MEDS ORDERED: MAGNESIUM HYDROXIDE (MOM) ORAL LIQD UDC PO PRN (00:29)
[2020-05-08] MEDS: IBUPROFEN 600 MG TAB PO SCH ×3 (05:56→17:07)
--- NOTE | 2020-05-08 07:06 | Post Anesthesia Evaluation ---
- Post Anesthesia Evaluation Patient Participated: Yes Airway Patent: Yes Stable Respiratory Function: Yes Nausea/Vomiting: No Temp > 96.8F: Yes Pain Manageable: Yes Adequeate Hydration: Yes Anesthesia Complications: No Block Receding Appropriately: Yes Patient on Ventilator: No
--- NOTE | 2020-05-08 09:54 | Event Note ---
Date: 05/08/20 (Pt sleep) Pt in bed with eyes closed. Appears to be sleep and in no signs or symptoms of distress. Will come at lunch time to check on pt.
[2020-05-08 10:01] LABS: Hemoglobin 8.9 gm/dl (10.1-14.3)
--- NOTE | 2020-05-08 19:05 | Progress Note ---
Assessment and Plan A: 19 y.o. s/p in stable condition during period. P: Continue with care. Discharge home in the AM if she remains stable. Subjective - Subjective Date of service: 05/08/20 Principal diagnosis: Term IUP in labor Patient reports: appetite normal, voiding normally, pain well controlled : doing well Objective - Vital Signs Latest vital signs: Vital Signs Temp Pulse Resp BP BP Pulse Ox 05/08/20 17:07 18 05/08/20 16:10 97.9 F 58 L 20 124/63 96 05/08/20 12:10 18 05/08/20 12:06 97.9 F 59 L 18 122/76 98 05/08/20 07:50 98.0 F 52 L 20 127/63 98 05/08/20 05:18 97.6 F 67 18 129/79 98 05/07/20 23:45 98.8 F 62 18 134/78 99 05/07/20 23:42 18 05/07/20 23:04 79 100 05/07/20 23:01 86 141/71 05/07/20 22:59 82 100 05/07/20 22:54 84 100 05/07/20 22:49 82 100 05/07/20 22:46 76 132/68 05/07/20 22:44 85 100 05/07/20 22:42 18 05/07/20 22:39 80 100 05/07/20 22:34 72 100 05/07/20 22:31 78 139/70 05/07/20 22:29 82 100 05/07/20 22:24 80 100 05/07/20 22:19 81 100 05/07/20 22:18 81 158/91 05/07/20 22:16 78 154/86 05/07/20 22:14 77 100 05/07/20 22:09 83 100 05/07/20 22:07 78 150/79 05/07/20 22:04 79 100 05/07/20 22:01 78 163/95 05/07/20 21:59 81 100 05/07/20 21:54 78 100 05/07/20 21:49 77 100 05/07/20 21:44 67 100 05/07/20 21:39 78 99 05/07/20 21:36 76 145/61 05/07/20 21:34 71 100 05/07/20 21:29 77 100 05/07/20 21:28 81 157/84 05/07/20 21:24 76 100 05/07/20 21:19 77 100 05/07/20 21:14 83 100 05/07/20 21:09 88 100 05/07/20 21:04 86 100 05/07/20 20:59 97 H 100 05/07/20 20:58 96 H 157/71 05/07/20 20:54 99 H 100 05/07/20 20:49 95 H 100 05/07/20 20:44 99 H 100 05/07/20 20:39 105 H 100 05/07/20 20:34 156 H 100 05/07/20 20:29 83 100 05/07/20 20:26 137 H 92 05/07/20 20:24 115 H 97 05/07/20 20:19 100 H 88 05/07/20 20:14 96 H 100 05/07/20 20:13 93 H 87 05/07/20 20:09 78 100 05/07/20 20:04 77 100 05/07/20 19:59 91 H 100 05/07/20 19:54 87 100 05/07/20 19:49 86 100 05/07/20 19:44 80 100 05/07/20 19:39 81 100 05/07/20 19:34 76 100 05/07/20 19:30 73 141/90 05/07/20 19:29 75 100 05/07/20 19:24 73 100 05/07/20 19:19 79 100 05/07/20 19:16 78 125/84 05/07/20 19:14 79 100 05/07/20 19:08 74 100 05/07/20 19:04 72 100 Intake and Output 05/08/20 05/08/20 05/08/20 06:59 14:59 22:59 Intake Total 360 120 480 Output Total 300 Balance 60 120 480 Intake: Oral 240 120 480 Intake, Free Water 120 Output: Urine 300 Void 300 Other: Total, Intake Amount 240 120 240 Total, Output Amount 300 # Voids Void 1 1 1 - Exam Breasts: Present: deferred Cardiovascular: Present: Regular rate Lungs: Present: Normal air movement Abdomen: Present: normal appearance, soft Vulva: both: normal Uterus: Present: normal, firm Extremities: Present: normal Deep Tendon Reflex Grade: Normal +2 - Labs Labs: Abnormal lab results 05/08/20 Range/Units 09:03 Hgb 8.9 L (10.1-14.3) gm/dl Hct 27.0 L D (30.3-42.9) %
[2020-05-08] MEDS ORDERED: MEASLES, MUMPS & RUBELLA 12,500 UNIT/0.5 ML VACCINE SUB-Q ONE (20:52)
[2020-05-09] MEDS: IBUPROFEN 600 MG TAB PO SCH ×3 (05:15→17:26)
[2020-05-09] MEDS ORDERED: DIPHtheria,PERTUSSIS(ACELL),TETANUS VACCINE/PF 0.5 ML VIAL IM ONE (06:00)
[2020-05-09 17:10] VITALS: BP 149/84
--- NOTE | 2020-05-09 17:13 | Discharge Summary ---
Providers - Providers Date of Admission: 05/07/20 08:27 Date of discharge: 05/09/20 (pt agrees with discharge) Attending physician: YESICA RODRIGUEZ Primary care physician: JHON GARCIA Hospitalization Reason for admission: active labor Delivery: Episiotomy: none Laceration: none Incision: normal Other procedures: none baby: male (declines circumcision) Condition at discharge: Good Disposition: DC-01 TO HOME OR SELFCARE - Discharge Diagnoses (1) Normal spontaneous vaginal delivery Status: Acute Comment: RTO 4 weeks PP care o 4 weeks PP care Plan - Discharge Medications Prescriptions: Docusate Sodium [Colace] 100 mg PO BID PRN #60 capsule PRN Reason: Constipation Ferrous Sulfate [Feosol 325 MG tab] 325 mg PO BID #60 tablet - Provider Discharge Summary Activity: routine, no sex for 6 weeks, no heavy lifting 4 weeks, no strenuous exercise Diet: routine Instructions: routine Additional instructions: [] Smoking cessation referral if applicable(refer to patient education folder for contact #) [] Refer to [facility]'s [facility] Booklet Call your doctor immediately for: * Fever > 100.5 * Heavy vaginal bleeding ( >1 pad per hour) * Severe persistent headache * Shortness of breath * Reddened, hot, painful area to leg or breast * Drainage or odor from incision. * Keep incision clean and dry at all times and follow doctor's instructions regarding bathing/showering - Follow up plan Follow up: JHON GARCIA MD [Primary Care Provider] - 06/07/20 (Please call [phone] to schedule your visit in 4 weeks. call with concerns)
== END 2020-05-09 17:40 | disposition home or self-care (01) | DRG 775 ==
LOC: TRG 07:25 → APU 07:27 → TRG 08:26 → LD 08:27 → EDBD 08:27 → OB 23:45
PROVIDERS: ADMIT Obstetrics & Gynecology; ATTEND Obstetrics & Gynecology
PROC: 10E0XZZ Delivery of Products of Conception, External Approach (ICD-10-PCS; principal; 2020-05-07)
PROC: 3E0R3BZ Introduction of Anesthetic Agent into Spinal Canal, Percutaneous Approach (ICD-10-PCS; 2020-05-07)
PROC: 00HU33Z Insertion of Infusion Device into Spinal Canal, Percutaneous Approach (ICD-10-PCS; 2020-05-07)
PROC: 3E0234Z Introduction of Serum, Toxoid and Vaccine into Muscle, Percutaneous Approach (ICD-10-PCS; 2020-05-09)
DX: O99.824 Streptococcus B carrier state complicating childbirth (principal); Z3A.40 40 weeks gestation of pregnancy; Z37.0 Single live birth; O76 Abnormality in fetal heart rate and rhythm complicating labor and delivery; Z23 Encounter for immunization
CPT/HCPCS: 36415; 80307; 81001; 85014; 85018; 85027; 86592; 86850; 86900; 86901; 88307; G0378; J0290; J2590; J3105; J3490; J7120